=== PATIENT | female | born 1980 | race Hispanic/Latino ===

== ENCOUNTER 2023-01-21 01:25 | Emergency (ER) | payer OTHER ==
[~2023-01-21] VITALS: Ht 152.4 cm; Wt 99.8 kg
[2023-01-21] MEDS ORDERED: IBUPROFEN 600 MG TAB PO STA (02:22)
[2023-01-21] MEDS ORDERED: IBUPROFEN 600 MG TAB ONE (02:24)
[2023-01-21] MEDS ORDERED: IBUPROFEN800 MG PO (02:42)
[2023-01-21 02:43] VITALS: BP 138/92; PULSE 68; RESP 18; TEMP 98.6; O2SAT 100
== END 2023-01-21 02:50 | disposition home or self-care (01) ==
LOC: FSED 01:29
DX: S93.492A Sprain of other ligament of left ankle, initial encounter (principal); W18.49XA Other slipping, tripping and stumbling without falling, initial encounter; Y92.89 Other specified places as the place of occurrence of the external cause; R60.9 Edema, unspecified; G40.909 Epilepsy, unspecified, not intractable, without status epilepticus; Z95.810 Presence of automatic (implantable) cardiac defibrillator; F17.210 Nicotine dependence, cigarettes, uncomplicated
CPT/HCPCS: 99283